=== PATIENT | male | born 1985 | race Caucasian/White ===

== ENCOUNTER 2017-03-30 08:42 | Observation (INO) | payer OTHER ==
[2017-03-30 10:01] LABS: Hematocrit 45 % (42-52); Hemoglobin 14.8 g/dl (14.0-18.0); Mean Corpuscular HGB Conc 33 g/dl (31-36); Mean Corpuscular Hemoglobin 30 pg (27-31); Mean Corpuscular Volume 89 fL (80-94); Mean Platelet Volume 11 um3 (7.4-10.4); Red Blood Count 5.02 10^6/ul (4.0-5.4); Red Cell Distribution Width 14 % (10.5-15); White Blood Count 9.8 10^3/ul (3.5-10.8)
[2017-03-30 10:22] LABS: Albumin 3.6 g/dL (3.2-5.2); BUN/Creatinine Ratio 11.7 (8-20); C Reactive Protein 230.84 mg/L (< 5.00); Calcium 8.7 mg/dL (8.6-10.3); EGFR African American 151.5 (>60); EGFR Non-African American 117.8 (>60); Globulin 3.7 g/dL (2-4); Potassium 3.9 mmol/L (3.5-5.0); Total Bilirubin 0.6 mg/dL (0.2-1.0); Total Protein 7.3 g/dL (6.4-8.9)
[2017-03-30] MEDS ORDERED: NS 0.9% 1000 ML* 1,000 ML IV ONE (11:01)
[2017-03-30 11:36] LABS: Erythrocyte Sed Rate 53 mm/Hr (0-14)
[2017-03-30] MEDS ORDERED: Ondansetron INJ* 2 MG/ML VIAL IV PRN (12:54)
[2017-03-30] MEDS ORDERED: Acetaminophen TAB* 325 MG PO PRN (12:54)
[2017-03-30] MEDS ORDERED: Nicotine Inhaler* 10 MG AMP INH PRN (13:06)
[2017-03-30] MEDS ORDERED: Nicotine GUM* 2 MG PO PRN (13:06)
[2017-03-30] MEDS: ceFAZolin 1 GM VIAL(*) 1 GM in NS 0.9% 50 ML* 50 ML IVPB SCH ×2 (14:51→21:49)
[2017-03-30] MEDS: Lisinopril TAB* 5 MG PO SCH (15:03)
[2017-03-30] MEDS: Enoxaparin(*) 40 MG/0.4 ML SYR SUBCUT SCH (15:03)
[2017-03-30] MEDS: Nicotine PATCH 21 MG/24 HR* PATCH TRANSDERM SCH (15:04)
--- NOTE | 2017-03-30 15:28 | HP ---
MEDICINE HISTORY AND PHYSICAL: DATE OF ADMISSION: 03/30/17 PROVIDER: Garrick David NP ATTENDING PHYSICIAN: Dr. Mandy Holland* (as dictated by Garrick David NP) PRIMARY CARE PROVIDER: None. CHIEF COMPLAINT: Rash and fever. HISTORY OF PRESENT ILLNESS: This is a 32-year-old male patient, who presented to the hospital today for evaluation of a rash to the lower abdomen. Mr. Strong reports that over the weekend, he felt cough, but participated in his usual activities. On Monday morning, he woke up feeling weak. He reports headache, diarrhea 1 episode. He also reports subjective fever when he was having alternating chills and hot flashes. On Monday, a rash appeared across his abdomen, which he initially thought was like a heat rash, but then states that it became very painful and hot and tender. He has been treating his symptoms with Tylenol and petroleum jelly with little relief. The rash is aggravated by clothing and blankets that rub on the rash. He also reports decreased p.o. intake as well dark urine, which has since cleared up. He does state he has had rashes to his abdomen previously but this is different from those previous rashes. The patient denies any chest pain, difficulty breathing, cold or flu-like symptoms, further vomiting or diarrhea, although he does still endorse some nausea. He denies any dysuria or gross hematuria, focal weakness, or any other complaint. Here in the ER, the patient had lab work which showed concerns for an elevated ESR 53 and a CRP at 230.84. Hospital Medicine was consulted with concern for panniculitis. PAST MEDICAL HISTORY: He reports history of hypertension for which he formerly took medication, but has been off that for several years secondary to noncompliance. The patient also thinks he may have been diagnosed with obstructive sleep apnea, but did not pursue followup after an overnight oximetry. He endorses chronic right foot pain and was previously treated for depression. Past medical history also includes super morbid obesity with a BMI of 62. PAST SURGICAL HISTORY: Includes tonsillectomy and multiple hernia repairs. HOME MEDICATIONS: Acetaminophen 1000 mg q.6 hours p.r.n. ALLERGIES: No known drug allergies. FAMILY HISTORY: The patient reports a history of heart disease in his maternal grandfather and maternal uncle as well as diabetes and both his maternal and paternal grandparents. SOCIAL HISTORY: The patient smokes 1-1/2 packs per day and has been smoking for 13 years. He reports drinking 1 to 2 beers on most evenings. His last drink was on Monday and he does drink heavier on the weekends. He is a electronics system mechanic. He is . He does have children. His surrogate decision makers are his , Azul Strong, and his mother, Joann Bernal. REVIEW OF SYSTEMS: As per HPI. PHYSICAL EXAMINATION GENERAL: This is a very pleasant young, obese male who is sitting up in the ED stretcher, in no acute distress. VITAL SIGNS: Temperature 96, pulse rate 97, respiratory rate 17, blood pressure 162/96, and O2 saturation 96% on room air. HEENT: Head is atraumatic and normocephalic. Face is symmetrical. Pupils are equal, round, and reactive to light and accommodation. Extraocular movements are intact. Oral mucosa appears moist. There is no oropharyngeal erythema or exudate. NECK: Supple. No lymphadenopathy appreciated. RESPIRATORY: Lungs are clear to auscultation. CARDIAC: S1 and S2 heart sounds, regular rate and rhythm. No murmurs, rubs, or gallops. There is no peripheral edema. Distal pulses are 1+ and equal bilaterally. ABDOMEN: Soft. Bowel sounds are normoactive. There is an erythematous, hot area of redness along the panniculus just below the umbilicus extending downwards into the abdominal fold. No open areas of drainage or blistering noted. MUSCULOSKELETAL: The patient moves all extremities. No clubbing or cyanosis noted. NEURO: Cranial nerves II through XII are grossly intact. The patient moves all extremities. Sensation is intact to light touch in lower extremities. PSYCH: He is alert and oriented x3. Affect is appropriate. SKIN: Again, there is an area of erythematous, hot, cellulitic skin to the abdomen as previously mentioned. DIAGNOSTIC STUDIES/LAB DATA: CBC: WBC 9.8, hemoglobin 14.8, hematocrit 45, platelet count 116. ESR 53. BMP: Sodium 134, potassium 3.9, chloride 101, carbon dioxide 27, BUN 9, creatinine 0.77, glucose 129, lactic acid 0.8, calcium 8.7. Total bilirubin 0.6, AST 23, ALT 28, alk phos 42. CRP 230. Old medical records were reviewed. ASSESSMENT AND PLAN: This is a 32-year-old male patient who presents today with concern for panniculitis. He will be admitted to the medicine floor. Plan is as follows: 1. Panniculitis. Affected area has been outlined with a skin marker to evaluate progression and improvement. The patient appears nontoxic. Blood cultures are pending. At this point in time, we will maintain the patient on Ancef, continue to monitor his progress, and await culture results. There are a few small open areas to the abdomen that may have been a point of entry for bacteria. We will recheck a CBC in the morning as well a BMP and clinically assess the patient's response to antibiotic treatment. 2. History of hypertension. The patient is hypertensive here. He was previously on medication, which he does not remember the name of. Given his multiple risk factors, we will start the patient on low-dose lisinopril to assess his response here. The patient will need a PCP referral prior to discharge in order to get appropriate followup once discharged from the hospital. 3. History of obstructive sleep apnea. I discussed with the patient the need to have an official sleep study, which can be arranged through his PCP once established. 4. History of depression. The patient is not currently on any medications. Continue supportive care. 5. History of super morbid obesity. The patient was referred to [facility] for further resources. We did discuss this with him and his family. The patient will defer until he is able to establish with a new primary care provider. 6. FEN. The patient is ordered a heart-healthy diet. 7. DVT prophylaxis. He is ordered subcu Lovenox. 8. Code status. The patient is a full code. TIME SPENT: Time spent on this admission was approximately 60 minutes, more than half that time was spent [id number] with the patient obtaining history and physical, performing the physical examination, and reviewing the plan of care. Plan of care was also discussed with my attending, Dr. Holland, who is in agreement. GARRICK DAVID, JAYLA [id number]/[facility] #: [id number] PARMINDER
[2017-03-30] MEDS ORDERED: Mouth Piece, Nicotine* 1 EACH CARTRIDGE ONE (16:20)
--- NOTE | 2017-03-30 17:23 | ED ---
Rj Bailey Angela, scribed for Kurtis Fernandez MD on 03/30/17 at 0912 . Skin Complaint - HPI Summary HPI Summary: This pt is a 32 y/o male presenting to [facility] c/o rash on his panniculus x2 days. Pt reports that on the first day he felt fatigued, "loopy," but didn't notice a rash. The next day he states he noticed the rash. Today pt presents with erythematous, warm, and very sore rash on his panniculus. Pt additionally c /o subjective fever and headache. PMHx: HTN. Pt reports he was given anti-hypertensive medications but has not taken them. - History of Current Complaint Chief Complaint: EDRashSkinAbscess Time Seen by Provider: 03/30/17 08:49 Stated Complaint: RASH, FEVER Hx Obtained From: Patient Onset/Duration: Started Days Ago Skin Exposure Onset/Duration: Days Ago Timing: Lasting Days Current Severity: Moderate Pain Intensity: 6 Pain Scale Used: 0-10 Numeric Skin Location: Abdomen - panniculus Character: Pain, Redness, Painful Aggravating Symptom(s): Nothing Alleviating Symptom(s): Nothing Associated Signs & Symptoms: Rash - Allergy/Home Medications Allergies/Adverse Reactions: Allergies Allergy/AdvReac Type Severity Reaction Status Date / Time No Known Allergies Allergy Verified 05/23/13 11:19 Home Medications: Home Medications Acetaminophen [Acetaminophen Extra Stren] 1,000 mg PO Q6HR PRN 03/30/17 [ History Confirmed 03/30/17] PMH/Surg Hx/FS Hx/Imm Hx Endocrine/Hematology History: Reports: Hx Diabetes - POSSIBLE - NO MEDS Cardiovascular History: Reports: Hx Hypertension Respiratory History: Reports: Hx Sleep Apnea - NO MACHINES Sensory History: Reports: Hx Contacts or Glasses - READING GLASSES Denies: Hx Hearing Aid Opthamlomology History: Reports: Hx Contacts or Glasses - READING GLASSES - Surgical History Surgery Procedure, Year, and Place: TONSILLECTOMY AND ADENOIDECTOMY A CHILD. 2009 UMBILICAL HERNIA REPAIR, [facility] Hx Anesthesia Reactions: No Infectious Disease History: No Infectious Disease History: Denies: Traveled Outside the [place] in Last 30 Days - Family History Known Family History: Positive: Diabetes - grandmother - Social History Alcohol Use: None Substance Use Type: Reports: None Smoking Status (MU): Current Every Day Smoker Review of Systems Positive: Fever - subjective, Fatigue. Negative: Chills Eyes: Negative ENT: Negative Negative: Chest Pain Negative: Shortness Of Breath Gastrointestinal: Negative Genitourinary: Negative Positive: Rash - on panniculus. Neurological: Other - dizzy/ "loopy" Positive: Headache All Other Systems Reviewed And Are Negative: Yes Physical Exam - Summary Physical Exam Summary: VITAL SIGNS: Reviewed. GENERAL: Patient is a well-developed and morbidly obese male who is lying comfortable in the stretcher. Patient is not in any acute respiratory distress. HEAD AND FACE: No signs of trauma. No ecchymosis, hematomas or skull depressions. No sinus tenderness. EYES: PERRLA, EOMI x 2, No injected conjunctiva, no nystagmus. EARS: Hearing grossly intact. Ear canals and tympanic membranes are within normal limits. MOUTH: Oropharynx within normal limits. NECK: Supple, trachea is midline, no adenopathy, no JVD, no carotid bruit, no c- spine tenderness, neck with full ROM. CHEST: Symmetric, no tenderness at palpation LUNGS: Clear to auscultation bilaterally. No wheezing or crackles. CVS: Regular rate and rhythm, S1 and S2 present, no murmurs or gallops appreciated. ABDOMEN: Soft, non-tender. No signs of distention. No rebound no guarding, and no masses palpated. Bowel sounds are normal. EXTREMITIES: FROM in all major joints, no edema, no cyanosis or clubbing. NEURO: Alert and oriented x 3. No acute neurological deficits. Speech is normal and follows commands. SKIN: Dry and warm. Pt has erythema, swelling, and tenderness on his panniculus. Triage Information Reviewed: Yes Vital Signs On Initial Exam: Initial Vitals Temp Pulse Resp BP Pulse Ox 96 F 97 17 162/96 96 03/30/17 08:43 03/30/17 08:43 03/30/17 08:43 03/30/17 08:43 03/30/17 08:43 Vital Signs Reviewed: Yes Diagnostics - Vital Signs Vital Signs Temp Pulse Resp BP Pulse Ox 03/30/17 08:43 96 F 97 17 162/96 96 - Laboratory Result Diagrams: 03/30/17 09:32 03/30/17 09:32 Lab Statement: Any lab studies that have been ordered have been reviewed, and results considered in the medical decision making process. Re-Evaluation - Re-Evaluation First Eval Re-Evaluation Time: 11:10 Comment: I discussed the plan for admission to the pt. Course/Dx - Course Assessment/Plan: This pt is a 32 y/o male presenting to [facility] c/o rash on his panniculus x2 days. Pt reports that on the first day he felt fatigued, "loopy," but didn't notice a rash. The next day he states he noticed the rash. Today pt presents with erythematous, warm, and very sore rash on his panniculus. Pt additionally c/o subjective fever and headache. PMHx: HTN. Pt reports he was given anti-hypertensive medications but has not taken them. Test results without any significant abnormalities except for platelet count of 116, ESR of 53, fibrinogen 608, CRP of 230, glucose of 129. Because of the pts panniculitis I started the pt on zosyn and IV fluids. I discussed the case with Dr. Holland, who accepted the pt for admission. Pt is hemodynamically stable, alert and oriented x3. - Diagnoses Provider Diagnoses: Panniculitis - Physician Notifications Discussed Care Of Patient With: Mandy Holland Time Discussed With Above Provider: 11:07 Instructed by Provider To: Other - I discussed the pt's case with Dr. Holland, hospitalist. She has agreed to admit the pt. Discharge - Discharge Plan Condition: Stable Disposition: ADMITTED TO [facility] The documentation as recorded by the Rj brown Angela accurately reflects the service I personally performed and the decisions made by me, Kurtis Fernandez MD.
[2017-03-30 20:07] LABS: Urine Bilirubin Negative (Negative); Urine Glucose Negative (Negative); Urine Nitrite Negative (Negative)
[2017-03-30] MEDS ORDERED: Nicotine Patch Removal NOTE PATCH OFF SCH (21:00)
[2017-03-31 05:19] LABS: Hematocrit 41 % (42-52); Hemoglobin 13.9 g/dl (14.0-18.0); Mean Corpuscular HGB Conc 34 g/dl (31-36); Mean Corpuscular Hemoglobin 30 pg (27-31); Mean Corpuscular Volume 89 fL (80-94); Mean Platelet Volume 10 um3 (7.4-10.4); Red Blood Count 4.67 10^6/ul (4.0-5.4); Red Cell Distribution Width 14 % (10.5-15); White Blood Count 7.9 10^3/ul (3.5-10.8)
[2017-03-31 05:20] LABS: Comments Flag Yes
[2017-03-31 05:30] LABS: BUN/Creatinine Ratio 13.8 (8-20); Calcium 8.6 mg/dL (8.6-10.3); EGFR Non-African American 112.8 (>60); Potassium 4.1 mmol/L (3.5-5.0)
[2017-03-31] MEDS: ceFAZolin 1 GM VIAL(*) 1 GM in NS 0.9% 50 ML* 50 ML IVPB SCH ×2 (05:51→12:45)
[2017-03-31] MEDS: Nicotine PATCH 21 MG/24 HR* PATCH TRANSDERM SCH (07:48)
[2017-03-31] MEDS: Lisinopril TAB* 5 MG PO SCH (07:48)
[2017-03-31 11:23] VITALS: BP 133/67
[2017-03-31] MEDS: Enoxaparin(*) 40 MG/0.4 ML SYR SUBCUT SCH (13:04)
--- NOTE | 2017-04-01 02:51 | DS ---
DISCHARGE SUMMARY: DATE OF ADMISSION: 03/30/17 DATE OF DISCHARGE: 03/31/17 ADMITTING PROVIDER: Noemi Wang NP. ATTENDING PHYSICIAN: Walter Siegel MD. PRINCIPAL DIAGNOSES: 1. Lower abdominal rash. 2. Fevers. 3. Chills. 4. Cellulitis/panniculitis. SECONDARY DIAGNOSES: 1. Morbid obesity with BMI above 60. 2. Newly diagnosed hypertension. 3. Current smoker. 4. Lost to medical followup of 3 years. HISTORY OF PRESENT ILLNESS AND HOSPITAL COURSE: The patient is a 32-year-old male with past medical history of morbid obesity, current smoker, family history of heart disease who presents with rash to his lower abdomen, which started 2 days prior to admission. He was up until then feeling more weak the day prior to that, had headaches and diarrhea x1. He then had subjective fevers and chills. The rash was then becoming very painful, hard and tender. He took Tylenol and petroleum jelly with little relief. Of note, he had been picking at some superficial skin sores that he often gets on his lower abdomen. He was admitted for treatment of cellulitis. He got 1 dose of IV Zosyn in the ED and transitioned to IV cefazolin. His rash improved. His initial labs were significant for a CRP of 230. White count 9.8, down to 7.9. His vital signs were notable initially for blood pressure in the 160/96 range. He was started on lisinopril 5 mg a day. He was also given a nicotine 21 mg patch, inhaler and gum for his 1-1/2 pack per day smoking habit. Given the improvement in the rash, stable hemodynamics and negative blood cultures, he was considered safe for discharge, on course of Keflex p.o. for a total course of antibiotics 10 days. He will follow up with new primary care physician, Dr. Preet Sosa of [place] early next week on Monday 2 p.m. They will have to address many chronic issues such as his morbid obesity with BMI of 64.6. His current smoking, of note he is being prescribed a nicotine patch and gum. He is to have a blood pressure check given his new medication and obviously evaluation for any side effects or progression of the rash or return of fevers. DISCHARGE DIET: Heart healthy. DISCHARGE ACTIVITY LEVEL: No restriction. DISCHARGE MEDICATIONS: Include: 1. Keflex 500 mg p.o. 4 times a day 38 tabs for a total course of 10 days. 2. Lisinopril 5 mg tablet p.o. daily. 3. Nicotine gum 2 mg p.o. q.2 hours p.r.n. 4. Nicotine patch 21 mg every 24 hours. 5. Tylenol 1000 mg p.o. q.6 hours p.r.n. (old). FOLLOWUP: With Dr. Preet Sosa on 04/05/17, at 2 p.m. Discussed plan as above. TIME SPENT: Time spent on discharge was 35 minutes. [id number]/[facility] #: [id number] PARMINDER
== END 2017-03-31 13:10 | disposition home or self-care (01) ==
LOC: ED 08:42 → MED 12:43 → INTOOBSV 12:43
PROVIDERS: ADMIT Internal Medicine; ATTEND Internal Medicine
DX: M79.3 Panniculitis, unspecified (principal); L03.311 Cellulitis of abdominal wall; R50.9 Fever, unspecified; G47.33 Obstructive sleep apnea (adult) (pediatric); E66.01 Morbid (severe) obesity due to excess calories; I10 Essential (primary) hypertension; F17.210 Nicotine dependence, cigarettes, uncomplicated; F32.9 Major depressive disorder, single episode, unspecified; Z79.82 Long term (current) use of aspirin; R10.9 Unspecified abdominal pain; Z79.899 Other long term (current) drug therapy
CPT/HCPCS: 36415; 80048; 80053; 81003; 83036; 83605; 85025; 85384; 85610; 85652; 85730; 86140; 87040; 96372; 96374; 96375; 96376; 99284; 99406; A9270-GY; G0378; J0690; J1650; J2543

== ENCOUNTER 2017-10-17 08:22 | Inpatient (IN) | payer SELFPAY ==
[2017-10-17 10:12] LABS: ABS Basophils 0.1 10^3/ul (0-0.2); ABS Eosinophils 0.2 10^3/ul (0-0.6); ABS Lymphocytes 1.8 10^3/ul (1.0-4.8); ABS Monocytes 0.9 10^3/ul (0-0.8); ABS Neutrophils 5.2 10^3/ul (1.5-7.7); ABS Nucleated RBC 0 10^3/ul; Eosinophil % 2.8 % (0-6); Hematocrit 45 % (42-52); Hemoglobin 15.4 g/dl (14.0-18.0); Mean Corpuscular HGB Conc 34 g/dl (31-36); Mean Corpuscular Hemoglobin 30 pg (27-31); Mean Corpuscular Volume 88 fL (80-94); Mean Platelet Volume 11.4 um3 (7.4-10.4); Nucleated Red Blood Cells % 0.1; Platelet Count 119 10^3/ul (150-450); Red Blood Count 5.11 10^6/ul (4.0-5.4); Red Cell Distribution Width 14 % (10.5-15); White Blood Count 8.2 10^3/ul (3.5-10.8)
[2017-10-17 10:32] LABS: EGFR Non-African American 114.4 (>60)
[2017-10-17] MEDS ORDERED: Iodixanol* (CONTRAST) 320 MG/ML 100 ML SDV IV ONE (11:01)
[2017-10-17] MEDS ORDERED: NS 0.9% 1000 ML* 1,000 ML IV ONE (11:55)
--- NOTE | 2017-10-17 14:09 | RAD ---
Indication: 3 weeks testicular pain after noticing a boil on the LEFT scrotum. Difficulty urinating due to overlapping skin. Morbid obesity. Comparison: July 16, 2015 Technique: CT pelvis with 141 mL Visipaque 320 IV contrast. Multiplanar reformation. Report: Morbid obesity. Mild diverticulosis of the partially visualized colon without acute inflammatory change. Unremarkable visualized small bowel loops and partially visualized appendix. Negative for ascites or free air within the [id number]. Postsurgical change of previous anterior supraumbilical mesh hernia repair. Unremarkable visualized distal segments of the nondilated ureters. Largely decompressed urinary bladder without gross abnormality. Negative for prostatomegaly. Symmetric seminal vesicles. 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 Diffuse dermal thickening at the scrotum. No compelling subcutaneous emphysema evident. No loculated soft tissue plane fluid collection evident. The testicles are located in the scrotum. No gross CT evidence for significant hydroceles however ultrasound would be more sensitive for detection of hydroceles. Negative for lymphadenopathy within the [id number]. Unremarkable aortic bifurcation and iliac arteries. Negative for suspicious osseous lesions. IMPRESSION: 1. 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 Diffuse dermal thickening at the scrotum. No compelling subcutaneous emphysema evident. No loculated soft tissue plane fluid collection evident. The testicles are located in the scrotum. No gross CT evidence for significant hydroceles however ultrasound would be more sensitive for detection of hydroceles. 2. Negative for lymphadenopathy.
--- NOTE | 2017-10-17 14:36 | ED ---
Skin Complaint - HPI Summary HPI Summary: Pt here w/ redness, swelling and wetness in groin area. Started 1 month ago as focal redness/irritation. Pt states he had a boil on left side of testicles and over past three weeks has increased in size and affecting both sides with swelling and pain. Denies fever, chills, nausea, vomiting, diarrhea. Has been trying to air the area out with fans, etc however continues to worsen. Difficulty with urination as he reports he has to find his penis due to all the swelling - once he locates it, he has some hesitation with urination but is eventually able to push urine out. Denies chest pain, ab pain, flank pain. In re : to the diffuse red rash in groin, he has no itching or swelling, no airway changes. H/o anbx recently - once in hospital and other outpt for dental infection - had a tooth pulled and thinks he may have thrush as well. "Borderline" diabetes - no PCP - recently unemployed - applying for insurance. Reports he's lost some weight as of late by changing his diet - wondering if this skin irritation started from extra loose skin in the area trapping moisture. - History of Current Complaint Chief Complaint: EDRashSkinAbscess Time Seen by Provider: 10/17/17 09:40 Stated Complaint: GENITAL PROBLEM Hx Obtained From: Patient, Family/Congressional Representative - Pain Intensity: 8 - Additional Pertinent History Primary Care Physician: [id number] - Allergy/Home Medications Allergies/Adverse Reactions: Allergies Allergy/AdvReac Type Severity Reaction Status Date / Time cefazolin Allergy Facial Verified 10/18/17 03:05 Redness/Flushing PMH/Surg Hx/FS Hx/Imm Hx Previously Healthy: No - morbidly obese Endocrine/Hematology History: Reports: Hx Diabetes - POSSIBLE - NO MEDS Denies: Autoimmune Disease Cardiovascular History: Reports: Hx Hypertension Respiratory History: Reports: Hx Sleep Apnea - NO MACHINES Sensory History: Reports: Hx Contacts or Glasses - READING GLASSES Denies: Hx Cataracts, Hx Hearing Aid Opthamlomology History: Reports: Hx Contacts or Glasses - READING GLASSES Denies: Hx Cataracts - Surgical History Surgery Procedure, Year, and Place: TONSILLECTOMY AND ADENOIDECTOMY A CHILD. 2009 UMBILICAL [place]ERNIA [place]PAIR[place] [facility] [place] Hx Anesthesia Reactions: No - Immunization History Immunizations Up to Date: Yes Infectious Disease History: No Infectious Disease History: Denies: Hx of Known/Suspected MRSA, Traveled Outside the [place] in Last 30 Days - Family History Known Family History: Positive: Diabetes - grandmother - Social History Lives: With Family Alcohol Use: Rare Hx Substance Use: No Substance Use Type: Reports: None Hx Tobacco Use: Yes Smoking Status (MU): Current Every Day Smoker Review of Systems Constitutional: Negative Negative: Fever, Chills, Fatigue Eyes: Negative ENT: Negative Cardiovascular: Negative Respiratory: Negative Gastrointestinal: Negative Positive: see HPI Musculoskeletal: Negative Positive: Rash Neurological: Negative Psychological: Normal All Other Systems Reviewed And Are Negative: Yes Physical Exam Triage Information Reviewed: Yes Vital Signs On Initial Exam: Initial Vitals Temp Pulse Resp BP Pulse Ox 97.7 F 106 20 148/84 96 10/17/17 08:27 10/17/17 08:27 10/17/17 08:27 10/17/17 08:27 10/17/17 08:27 Vital Signs Reviewed: Yes Appearance: Positive: Well-Appearing, Obese Skin: Positive: Warm - erythematous, diffuse induration of thickened skin with satellite erythematous spots and wetness within creases of groin Head/Face: Positive: Normal Head/Face Inspection Eyes: Positive: Normal, EOMI ENT: Positive: Normal ENT inspection, Hearing grossly normal, Other - tongue with white coating Respiratory/Lung Sounds: Positive: Breath Sounds Present Cardiovascular: Positive: Normal Abdomen Description: Positive: Nontender, Soft Bowel Sounds: Positive: Present Male Genital Exam: Positive: Scrotum Tenderness (R), Scrotum Tenderness (L), Other - penis is burried in edematous/erythematous groin tissue of pannus, lateral groin skin and scrotal skin - urethra is patent and w/o lesions. Negative: Testicular Tenderness (R), Testicular Tenderness (L), Urethral Discharge Musculoskeletal: Positive: Other - pt is able to ambulate Neurological: Positive: Normal, Sensory/Motor Intact, Alert, Oriented to Person Place, Time, CN Intact II-III Psychiatric: Positive: Normal Diagnostics - Vital Signs Vital Signs Temp Pulse Resp BP Pulse Ox 10/17/17 12:00 92 93 10/17/17 11:58 90 111/70 93 10/17/17 11:52 92 147/86 94 10/17/17 11:03 91 93 10/17/17 10:29 95 20 130/77 91 10/17/17 10:28 92 130/77 92 10/17/17 08:27 97.7 F 106 20 148/84 96 - Laboratory Lab Results: Lab Results 10/17/17 10/17/17 10/17/17 Range/Units 10:03 10:03 10:03 WBC 8.2 (3.5-10.8) 10^3/ul RBC 5.11 (4.0-5.4) 10^6/ul Hgb 15.4 (14.0-18.0) g/dl Hct 45 (42-52) % MCV 88 (80-94) fL MCH 30 (27-31) pg MCHC 34 (31-36) g/dl RDW 14 (10.5-15) % Plt Count 119 L (150-450) 10^3/ul MPV 11.4 H (7.4-10.4) um3 Neut % (Auto) 63.7 (38-83) % Lymph % (Auto) 22.0 L (25-47) % [place] % (Auto) 10.6 H (0-7) % Eos % (Auto) 2.8 (0-6) % Baso % (Auto) 0.9 (0-2) % Absolute Neuts (auto) 5.2 (1.5-7.7) 10^3/ul Absolute Lymphs (auto) 1.8 (1.0-4.8) 10^3/ul Absolute Monos (auto) 0.9 H (0-0.8) 10^3/ul Absolute Eos (auto) 0.2 (0-0.6) 10^3/ul Absolute Basos (auto) 0.1 (0-0.2) 10^3/ul Absolute Nucleated RBC 0 10^3/ul Nucleated RBC % 0.1 ESR 35 H (0-14) mm/Hr Sodium 129 L (139-145) mmol/L Potassium 4.3 (3.5-5.0) mmol/L Chloride 92 L (101-111) mmol/L Carbon Dioxide 24 (22-32) mmol/L Anion Gap 13 H (2-11) mmol/L BUN 14 (6-24) mg/dL Creatinine 0.79 (0.67-1.17) mg/dL Est GFR ( Amer) 147.1 (>60) Est GFR (Non-Af Amer) 114.4 (>60) BUN/Creatinine Ratio 17.7 (8-20) Glucose 498 H (70-100) mg/dL Hemoglobin A1c (4.0-5.6) % Lactic Acid 0.9 (0.5-2.0) mmol/L Calcium 9.3 (8.6-10.3) mg/dL Total Bilirubin 0.70 (0.2-1.0) mg/dL AST 18 (13-39) U/L ALT 35 (7-52) U/L Alkaline Phosphatase 59 (34-104) U/L C-Reactive Protein 36.22 H (< 5.00) mg/L Total Protein 6.9 (6.4-8.9) g/dL Albumin 3.7 (3.2-5.2) g/dL Globulin 3.2 (2-4) g/dL Albumin/Globulin Ratio 1.2 (1-3) 10/17/17 Range/Units 10:03 WBC (3.5-10.8) 10^3/ul RBC (4.0-5.4) 10^6/ul Hgb (14.0-18.0) g/dl Hct (42-52) % MCV (80-94) fL MCH (27-31) pg MCHC (31-36) g/dl RDW (10.5-15) % Plt Count (150-450) 10^3/ul MPV (7.4-10.4) um3 Neut % (Auto) (38-83) % Lymph % (Auto) (25-47) % [place] % (Auto) (0-7) % Eos % (Auto) (0-6) % Baso % (Auto) (0-2) % Absolute Neuts (auto) (1.5-7.7) 10^3/ul Absolute Lymphs (auto) (1.0-4.8) 10^3/ul Absolute Monos (auto) (0-0.8) 10^3/ul Absolute Eos (auto) (0-0.6) 10^3/ul Absolute Basos (auto) (0-0.2) 10^3/ul Absolute Nucleated RBC 10^3/ul Nucleated RBC % ESR (0-14) mm/Hr Sodium (139-145) mmol/L Potassium (3.5-5.0) mmol/L Chloride (101-111) mmol/L Carbon Dioxide (22-32) mmol/L Anion Gap (2-11) mmol/L BUN (6-24) mg/dL Creatinine (0.67-1.17) mg/dL Est GFR ( Amer) (>60) Est GFR (Non-Af Amer) (>60) BUN/Creatinine Ratio (8-20) Glucose (70-100) mg/dL Hemoglobin A1c 15.2 H (4.0-5.6) % Lactic Acid (0.5-2.0) mmol/L Calcium (8.6-10.3) mg/dL Total Bilirubin (0.2-1.0) mg/dL AST (13-39) U/L ALT (7-52) U/L Alkaline Phosphatase (34-104) U/L C-Reactive Protein (< 5.00) mg/L Total Protein (6.4-8.9) g/dL Albumin (3.2-5.2) g/dL Globulin (2-4) g/dL Albumin/Globulin Ratio (1-3) Result Diagrams: 10/17/17 10:03 10/18/17 06:21 Lab Statement: Any lab studies that have been ordered have been reviewed, and results considered in the medical decision making process. Course/Dx - Course Course Of Treatment: Suspect cellulitis from infectious cause along with yeast infection of the groin. New onset DM w/ significantly elevated glucose and HGA1C w/o PCP or f/u care - will admit. Discussed w/ Dr. Holland who agrees. CT: diffuse dermal thickening of scrotum - no emphysema or fluid collection. NOTE: no s/sx of sepsis - Diagnoses Provider Diagnoses: Fungal infection of the groin, Diabetes type 2, uncontrolled, Abscess or cellulitis of groin Discharge - Sign-Out/Discharge Documenting (check all that apply): Discharge/Admit/Transfer - Discharge Plan Condition: Improved Disposition: ADMITTED TO [facility] - Billing Disposition and Condition Condition: IMPROVED Disposition: [place] [place]
[2017-10-17] MEDS ORDERED: Acetaminophen TAB* 325 MG PO PRN (15:28)
[2017-10-17] MEDS ORDERED: Al Hydrox/Mg Hydrox/Simet LIQ* 30 ML UDC PO PRN (15:28)
[2017-10-17] MEDS ORDERED: Dextrose 50% Syringe 50 ML* 25 GM/50 ML SYRINGE IV PUSH PRN (15:34)
[2017-10-17] MEDS ORDERED: Insulin GLARGINE(*) 1 UNITS UNIT SUBCUT SCH (16:00)
[2017-10-17] MEDS: ceFAZolin 1 GM VIAL(*) 1 GM in NS 0.9% 50 ML* 50 ML IVPB SCH ×2 (17:48→22:01)
[2017-10-17] MEDS: NS 0.9% 1000 ML* 1,000 ML IV SCH (17:48)
[2017-10-17] MEDS: glipiZIDE TAB* 5 MG PO SCH (17:49)
[2017-10-17] MEDS: Insulin LISPRO* 1 UNITS UNIT SUBCUT SCH ×2 (17:58→21:59)
[2017-10-17] MEDS: Nystatin CREAM* 15 GM TUBE TOPICAL SCH ×2 (17:59→22:11)
--- NOTE | 2017-10-17 21:32 | HP ---
HISTORY AND PHYSICAL: DATE OF ADMISSION: 10/17/17 PRIMARY CARE PROVIDER: None. CHIEF COMPLAINT: An infection in the groin area. HISTORY OF PRESENT ILLNESS: Florian Strong is a 32-year-old male with BMI of over 60. The patient stated that he was admitted in March of 2017 and during that admission when he had panniculitis, he was noted to be hypertensive and having "borderline sugars." He at that point started dieting. He stopped drinking alcohol 2 months ago. He cut down smoking to half a pack per day and he took away soda from his diet. He stated that he lost some weight, but unfortunately he cannot quantify it since he does not have a scale if it would be able to measure his weight at home. He started noticing polydipsia and polyuria. Yesterday, he drank some alcohol, which he has not done for 2 months and he developed scrotal swelling with erythema. He stated that it had been going on for a while, but it has progressed recently and more so since yesterday. When he presented to the hospital, he was noted to have sugar of 498. His hemoglobin A1c was 15. He was noted to have inflammatory changes in his groin area, which appears to be cellulitis and candidal intertrigo. He is going to be placed on observation for the above mentioned. PAST MEDICAL HISTORY: 1. Super morbid obesity. 2. History of hypertension in the past, currently not treated. 3. History of glucose intolerance. New diagnosis of diabetes during this hospital stay. MEDICATIONS: None. ALLERGIES: No known drug allergies. FAMILY HISTORY: Positive for mother with morbid obesity, who had gastric bypass in the past. Grandfather and uncle with diabetes, heart disease in grandfather. SOCIAL HISTORY: The patient cut down to half a pack of cigarettes a day and he had been smoking 1 to 1-1/2 packs per day for 13 years up to now. He has history of drinking at least a couple of beers every evening, but he quit 2 months ago. He denies any drug use. His surrogate decision maker is his , Azul Strong, and his mother, Joann Bernal. REVIEW OF SYSTEMS: Please see history of present illness. All the remaining 12 systems were reviewed with the patient and were otherwise negative. PHYSICAL EXAMINATION GENERAL: The patient is a very pleasant 32-year-old morbidly-obese male, who is in no acute distress. Alert, awake, and oriented x3. VITAL SIGNS: Blood pressure of 137/78, heart rate of 87 and regular, respiratory rate 16, oxygen saturation 95% on room air, temperature of 97.7. HEENT: Head: Atraumatic, normocephalic. Eyes: Pupils are equal, reactive to light and accommodation. Oropharynx clear. Mucosa moist. NECK: Supple. No JVD. No bruits bilaterally. RESPIRATORY: Clear to auscultation bilaterally. CARDIOVASCULAR: Regular rate and rhythm. No murmur. ABDOMEN: Soft, nontender. Bowel sounds are present in all 4 quadrants. EXTREMITIES: There is +1 pitting pedal edema bilaterally. Pulses +2 bilaterally. There is no clubbing or cyanosis. NEURO EVALUATION: Speech is clear. Cranial nerves II through XII are grossly intact. Motor strength is 5/5 bilaterally. SKIN: On evaluation of the skin, the patient has candidal intertrigo, which is [id number] in bilateral groin area. His entire area surrounding his penis , scrotal area is with erythema that is tracking up to his pannus consistent with cellulitis. The patient also has several small areas of indurations, likely related to hidradenitis-like appearing picture. DIAGNOSTIC STUDIES/LAB DATA: Laboratory data showed white blood cell count of 8.2, hemoglobin of 15.4, hematocrit 45, and platelets 119. ESR was 35. Sodium was 129, potassium 4.3, chloride 92, carbon dioxide 24, BUN 14, and creatinine 0.79. Liver functions unremarkable. C-reactive protein of 36. Glucose 498. Hemoglobin A1c of 15. CT of pelvis obtained with contrast, impression: "Buried penis due to morbid obesity. Diffuse dermal thickening of the scrotum with no compelling subcutaneous emphysema evident. No loculated soft tissue or plain fluid collection evident. Testicles are loculated in the scrotum. No gross CT evidence for significant hydrocele; however, ultrasound would be more sensitive for detection of hydrocele. Negative for lymphadenopathy." ASSESSMENT AND PLAN: 1. In regards to the patient's cellulitis/panniculitis and candidal intertrigo , the patient is going to be placed on Ancef and nystatin cream. At this point , he is not toxic-appearing, he has no leukocytosis, and no fever. In the past , his panniculitis was treated with Keflex with good results. 2. New diagnosis of diabetes. The patient is dehydrated and has new diagnosis of diabetes. His hemoglobin A1c is 15. Unfortunately, the patient has no insurance, which complicates management. We will ask social work instructor to see the patient in consultation. The patient is going to be placed on insulin Lantus as well as started on glipizide. He will benefit from treatment with metformin , but unfortunately he had a CT of pelvis with contrast and metformin cannot be used for another 72 hours. I will start the patient on glipizide. I will ask diabetic universal branch consultant to see the patient in evaluation. I will ask nursing to start the patient education in regards to fingersticks. Rug Renovator is going to see the patient in regards to diabetic diet. 3. For DVT prophylaxis, the patient is moderate risk and he is going to be placed on heparin subcutaneously. 4. The patient's code status is full and his surrogate is his as well as his mother. TIME SPENT: Approximately 62 minutes was spent on admission of this patient, more than half of that time was spent [id number] with the patient during the interview and physical exam. [id number]/[facility] #: [id number] PARMINDER
[2017-10-17] MEDS: Docusate CAP* 100 MG PO SCH (22:06)
[2017-10-17] MEDS: Heparin VIAL(*) 5000 UNITS/ML VIAL (FIVE THOUSAND) SUBCUT SCH (22:06)
[2017-10-18] MEDS: NS 0.9% 1000 ML* 1,000 ML IV SCH (02:39)
[2017-10-18] MEDS ORDERED: FAMOTIDINE IVPB ONE (02:49)
[2017-10-18] MEDS ORDERED: NS 0.9% IVPB ONE (02:49)
[2017-10-18] MEDS ORDERED: diPHENhydraMINE IV* 50 MG in NS 0.9% 50 ML* 50 ML IVPB PRN (02:49)
[2017-10-18] MEDS ORDERED: diPHENhydraMINE IV* 50 MG/ML 1 ml VIAL (BENADRYL) IV PRN (02:51)
--- NOTE | 2017-10-18 02:51 | PN ---
Hospitalist Progress Note Date of Service: 10/18/17 called for itching redness to cefazolin, will change to vanco for now, will also give prn benadryl and add pepcid,
[2017-10-18] MEDS ORDERED: Famotidine IV* 10 MG/ML 2 ML (20 mg) IV ONE (03:00)
[2017-10-18] MEDS ORDERED: Vancomycin per Pharmacy* NOTE FOLLOW UP PRN (04:13)
[2017-10-18] MEDS ORDERED: Vancomycin(*) 2,000 MG in NS 0.9% 500 ML* 500 ML IVPB ONE (05:00)
[2017-10-18] MEDS: Heparin VIAL(*) 5000 UNITS/ML VIAL (FIVE THOUSAND) SUBCUT SCH ×3 (05:31→22:32)
[2017-10-18 07:15] LABS: EGFR Non-African American 157.1 (>60)
[2017-10-18] MEDS ORDERED: diPHENhydraMINE PO* 25 MG PO PRN (08:13)
[2017-10-18] MEDS: glipiZIDE TAB* 5 MG PO SCH ×2 (08:37→17:50)
[2017-10-18] MEDS: Insulin LISPRO* 1 UNITS UNIT SUBCUT SCH ×4 (08:37→20:44)
[2017-10-18] MEDS: DOXYcycline CAP(*) 100 MG PO SCH ×2 (08:37→20:44)
[2017-10-18] MEDS: Docusate CAP* 100 MG PO SCH ×2 (08:37→20:45)
[2017-10-18] MEDS: Nystatin CREAM* 15 GM TUBE TOPICAL SCH ×3 (08:39→20:46)
[2017-10-18] MEDS ORDERED: methylPREDNISolone SOD 40 MG* 1 ML VIAL IV SCH (09:00)
[2017-10-18] MEDS ORDERED: Insulin GLARGINE(*) 1 UNITS UNIT SUBCUT SCH (09:02)
[2017-10-18] MEDS ORDERED: Vancomycin(*) 1,250 MG in NS 0.9% 250 ML* 250 ML IVPB SCH (13:00)
--- NOTE | 2017-10-18 15:46 | CONSULT ---
Subjective Reason for Visit: Diabetes Educatioin Admission Date: 10/17/17 Glucose Level On Admission: [id number]=22.8% Patient History Surgical History: Yes Surgery Procedure, Year, and Place: TONSILLECTOMY AND ADENOIDECTOMY A CHILD. [place]ICAL [place] [facility] [place] With: Family Preferred/Primary Language: Iraqi Objective Allergies Allergy/AdvReac Type Severity Reaction Status Date / Time cefazolin Allergy Facial Verified 10/18/17 03:05 Redness/Flushing Home Medications Medication Instructions Recorded Confirmed Type NK [No Home Medications Reported] 10/17/17 10/17/17 History Hospital Medications: Current Medications Acetaminophen (Tylenol Tab*) 650 mg PO Q4H PRN PRN Reason: FEVER/PAIN Al Hydrox/Mg Hydrox/Simethicone (Maalox Plus*) 30 ml PO Q6H PRN PRN Reason: INDIGESTION Dextrose (D50w Syringe 50 Ml*) 12.5 gm IV PUSH .FOR FS < 60 - SS PRN PRN Reason: FS < 60 Diphenhydramine HCl (Benadryl Po*) 25 mg PO Q4H PRN PRN Reason: Allergy Symptoms Last Admin: 10/18/17 08:37 Dose: 25 mg Docusate Sodium (Colace Cap*) 100 mg PO BID [facility] Last Admin: 10/18/17 08:37 Dose: Not Given Doxycycline Hyclate (Vibramycin Cap(*)) 100 mg PO BID [facility] Last Admin: 10/18/17 08:37 Dose: 100 mg Glipizide (Glucotrol Tab*) 5 mg PO 0800,1700 [facility] Last Admin: 10/18/17 08:37 Dose: 5 mg Heparin Sodium (Porcine) (Heparin Vial(*)) 5,000 units SUBCUT Q8HR [facility] Last Admin: 10/18/17 14:11 Dose: 5,000 units Sodium Chloride (Ns 0.9% 1000 Ml*) 1,000 mls @ 125 mls/hr IV PER RATE [facility] Last Admin: 10/18/17 02:39 Dose: 125 mls/hr Insulin Glargine (Lantus(*)) 20 units SUBCUT Q24H [facility] Last Admin: 10/18/17 09:55 Dose: 20 unit Insulin Human Lispro (Humalog*) 0 units SUBCUT ACHS [facility] PRN Reason: Protocol Last Admin: 10/18/17 12:51 Dose: 9 units Methylprednisolone Sodium Succinate (Solu-Medrol 40 Mg) 40 mg IV Q12H [facility] Last Admin: 10/18/17 08:36 Dose: 40 mg Nystatin (Nystatin Cream*) 1 applic TOPICAL TID [facility] Last Admin: 10/18/17 14:12 Dose: 1 applic Lab Data: Sodium 134 mmol/L (139-145) L 10/18/17 06:21 Potassium 3.7 mmol/L (3.5-5.0) 10/18/17 06:21 BUN 9 mg/dL (6-24) 10/18/17 06:21 Creatinine 0.60 mg/dL (0.67-1.17) L 10/18/17 06:21 Hemoglobin A1c 15.2 % (4.0-5.6) H 10/17/17 10:03 Calcium 8.0 mg/dL (8.6-10.3) L 10/18/17 06:21 AST 18 U/L (13-39) 10/17/17 10:03 ALT 35 U/L (7-52) 10/17/17 10:03 Vital Signs: Vital Signs 10/18/17 10/18/17 11:12 11:37 Temperature 98.0 F Pulse Rate 85 Respiratory 18 22 Rate Blood Pressure 152/82 (mmHg) O2 Sat by Pulse 93 Oximetry Height: 6 ft 1 in Weight: 460 lb 11.2 oz Body Mass Index (BMI): 60.7 Physical Exam General Appearance: Positive: Alert, Oriented x3, Obese Plan Of Care Referral To: [facility] For Further OutPT Diabetic Training Diagnosis: Type 2 diabetes with hyperglycemia Class IV obesity (BMI>60) Education Prior Diabetic Education: No Education Provided: Daily Self Injection Handouts Provided: Taking charge of your diabetes Recognition and treatment of hypoglycemia Use of insulin pen and rotation of injection sites
--- NOTE | 2017-10-18 17:01 | PN ---
Subjective Date of Service: 10/18/17 Interval History: Pt had hives and facial swelling after Ancef administered. Suspect due to the antibiotic, but pt was treated with Ancef in 03/2018 without any allergy symptoms noted. The facial edema and hives resolved. Objective Active Medications: Acetaminophen (Tylenol Tab*) 650 mg PO Q4H PRN PRN Reason: FEVER/PAIN Al Hydrox/Mg Hydrox/Simethicone (Maalox Plus*) 30 ml PO Q6H PRN PRN Reason: INDIGESTION Dextrose (D50w Syringe 50 Ml*) 12.5 gm IV PUSH .FOR FS < 60 - SS PRN PRN Reason: FS < 60 Diphenhydramine HCl (Benadryl Po*) 25 mg PO Q4H PRN PRN Reason: Allergy Symptoms Last Admin: 10/18/17 08:37 Dose: 25 mg Docusate Sodium (Colace Cap*) 100 mg PO BID [facility] Last Admin: 10/18/17 08:37 Dose: Not Given Doxycycline Hyclate (Vibramycin Cap(*)) 100 mg PO BID [facility] Last Admin: 10/18/17 08:37 Dose: 100 mg Glipizide (Glucotrol Tab*) 5 mg PO 0800,1700 [facility] Last Admin: 10/18/17 08:37 Dose: 5 mg Heparin Sodium (Porcine) (Heparin Vial(*)) 5,000 units SUBCUT Q8HR [facility] Last Admin: 10/18/17 14:11 Dose: 5,000 units Sodium Chloride (Ns 0.9% 1000 Ml*) 1,000 mls @ 125 mls/hr IV PER RATE [facility] Last Admin: 10/18/17 02:39 Dose: 125 mls/hr Insulin Glargine (Lantus(*)) 20 units SUBCUT Q24H [facility] Last Admin: 10/18/17 09:55 Dose: 20 unit Insulin Human Lispro (Humalog*) 0 units SUBCUT ACHS [facility] PRN Reason: Protocol Last Admin: 10/18/17 12:51 Dose: 9 units Methylprednisolone Sodium Succinate (Solu-Medrol 40 Mg) 40 mg IV Q12H [facility] Last Admin: 10/18/17 08:36 Dose: 40 mg Nystatin (Nystatin Cream*) 1 applic TOPICAL TID [facility] Last Admin: 10/18/17 14:12 Dose: 1 applic Vital Signs - 8 hr 10/18/17 10/18/17 11:12 11:37 Temperature 98.0 F Pulse Rate 85 Respiratory 18 22 Rate Blood Pressure 152/82 (mmHg) O2 Sat by Pulse 93 Oximetry Oxygen Devices in Use Now: None Appearance: 32 yo obese M in nAD, AAOx3 Eyes: No Scleral Icterus, PERRLA Ears/Nose/Mouth/Throat: NL Teeth, Lips, Gums, Mucous Membranes Moist Neck: NL Appearance and Movements; NL JVP, Trachea Midline Respiratory: Symmetrical Chest Expansion and Respiratory Effort, Clear to Auscultation Cardiovascular: NL Sounds; No Murmurs; No JVD, RRR Abdominal: NL Sounds; No Tenderness; No Distention Lymphatic: No Cervical Adenopathy Extremities: No Clubbing, Cyanosis, - - trace pedal edema b/l Skin: - - pubic area and b/l groin intertrigo resolving. Several folliculitis like spots greatly improved, cellulitis receding. Pt has an area of induration to left of his penis -likely related to hydroadenitis suppurativa. Neurological: Alert and Oriented x 3, NL Muscle Strength and Tone Result Diagrams: 10/17/17 10:03 10/18/17 06:21 Additional Lab and Data: Lab Results 10/17/17 10/17/17 10/17/17 Range/Units 10:03 10:03 10:03 WBC 8.2 (3.5-10.8) 10^3/ul RBC 5.11 (4.0-5.4) 10^6/ul Hgb 15.4 (14.0-18.0) g/dl Hct 45 (42-52) % MCV 88 (80-94) fL MCH 30 (27-31) pg MCHC 34 (31-36) g/dl RDW 14 (10.5-15) % Plt Count 119 L (150-450) 10^3/ul MPV 11.4 H (7.4-10.4) um3 Neut % (Auto) 63.7 (38-83) % Lymph % (Auto) 22.0 L (25-47) % [place] % (Auto) 10.6 H (0-7) % Eos % (Auto) 2.8 (0-6) % Baso % (Auto) 0.9 (0-2) % Absolute Neuts (auto) 5.2 (1.5-7.7) 10^3/ul Absolute Lymphs (auto) 1.8 (1.0-4.8) 10^3/ul Absolute Monos (auto) 0.9 H (0-0.8) 10^3/ul Absolute Eos (auto) 0.2 (0-0.6) 10^3/ul Absolute Basos (auto) 0.1 (0-0.2) 10^3/ul Absolute Nucleated RBC 0 10^3/ul Nucleated RBC % 0.1 ESR 35 H (0-14) mm/Hr Sodium 129 L (139-145) mmol/L Potassium 4.3 (3.5-5.0) mmol/L Chloride 92 L (101-111) mmol/L Carbon Dioxide 24 (22-32) mmol/L Anion Gap 13 H (2-11) mmol/L BUN 14 (6-24) mg/dL Creatinine 0.79 (0.67-1.17) mg/dL Est GFR ( Amer) 147.1 (>60) Est GFR (Non-Af Amer) 114.4 (>60) BUN/Creatinine Ratio 17.7 (8-20) Glucose 498 H (70-100) mg/dL Hemoglobin A1c (4.0-5.6) % Lactic Acid 0.9 (0.5-2.0) mmol/L Calcium 9.3 (8.6-10.3) mg/dL Total Bilirubin 0.70 (0.2-1.0) mg/dL AST 18 (13-39) U/L ALT 35 (7-52) U/L Alkaline Phosphatase 59 (34-104) U/L C-Reactive Protein 36.22 H (< 5.00) mg/L Total Protein 6.9 (6.4-8.9) g/dL Albumin 3.7 (3.2-5.2) g/dL Globulin 3.2 (2-4) g/dL Albumin/Globulin Ratio 1.2 (1-3) 10/17/17 Range/Units 10:03 WBC (3.5-10.8) 10^3/ul RBC (4.0-5.4) 10^6/ul Hgb (14.0-18.0) g/dl Hct (42-52) % MCV (80-94) fL MCH (27-31) pg MCHC (31-36) g/dl RDW (10.5-15) % Plt Count (150-450) 10^3/ul MPV (7.4-10.4) um3 Neut % (Auto) (38-83) % Lymph % (Auto) (25-47) % [place] % (Auto) (0-7) % Eos % (Auto) (0-6) % Baso % (Auto) (0-2) % Absolute Neuts (auto) (1.5-7.7) 10^3/ul Absolute Lymphs (auto) (1.0-4.8) 10^3/ul Absolute Monos (auto) (0-0.8) 10^3/ul Absolute Eos (auto) (0-0.6) 10^3/ul Absolute Basos (auto) (0-0.2) 10^3/ul Absolute Nucleated RBC 10^3/ul Nucleated RBC % ESR (0-14) mm/Hr Sodium (139-145) mmol/L Potassium (3.5-5.0) mmol/L Chloride (101-111) mmol/L Carbon Dioxide (22-32) mmol/L Anion Gap (2-11) mmol/L BUN (6-24) mg/dL Creatinine (0.67-1.17) mg/dL Est GFR ( Amer) (>60) Est GFR (Non-Af Amer) (>60) BUN/Creatinine Ratio (8-20) Glucose (70-100) mg/dL Hemoglobin A1c 15.2 H (4.0-5.6) % Lactic Acid (0.5-2.0) mmol/L Calcium (8.6-10.3) mg/dL Total Bilirubin (0.2-1.0) mg/dL AST (13-39) U/L ALT (7-52) U/L Alkaline Phosphatase (34-104) U/L C-Reactive Protein (< 5.00) mg/L Total Protein (6.4-8.9) g/dL Albumin (3.2-5.2) g/dL Globulin (2-4) g/dL Albumin/Globulin Ratio (1-3) Assess/Plan/Problems-Billing Assessment: 32 yo M with morbid obesity presented with groin/pannus cellultis and new dx of DM. - Patient Problems (1) Cellulitis Comment: due to possible allergy to Ancef, started Doxy. Improving. cont Nystatin for Jenny intertrigo (2) Morbid obesity with BMI of 60.0-69.9, adult (3) Hives Comment: suspect due to ancef, resolved. will cont Benadryl prn. Stop Solu Medrol (4) DM2 (diabetes mellitus, type 2) Comment: DM consult pending cont ISS, increasing Lantus. cont Gliupizide. Can start metformin [address] (5) DVT prophylaxis Comment: HSQ Status and Disposition: Due to still uncontrolled DM will place pt on full admission
[2017-10-18] MEDS ORDERED: Insulin GLARGINE(*) 1 UNITS UNIT SUBCUT ONE (18:30)
[2017-10-18] MEDS ORDERED: Insulin GLARGINE(*) 1 UNITS UNIT ONE (18:55)
[2017-10-19] MEDS: Heparin VIAL(*) 5000 UNITS/ML VIAL (FIVE THOUSAND) SUBCUT SCH ×2 (05:53→12:51)
[2017-10-19] MEDS ORDERED: glipiZIDE TAB* 5 MG PO SCH (08:10)
[2017-10-19] MEDS ORDERED: Insulin GLARGINE(*) 1 UNITS UNIT SUBCUT SCH (09:00)
[2017-10-19] MEDS: DOXYcycline CAP(*) 100 MG PO SCH (09:07)
[2017-10-19] MEDS: Nystatin CREAM* 15 GM TUBE TOPICAL SCH ×2 (09:09→12:51)
[2017-10-19] MEDS: Docusate CAP* 100 MG PO SCH (09:09)
[2017-10-19] MEDS: Insulin LISPRO* 1 UNITS UNIT SUBCUT SCH ×2 (09:11→12:51)
[2017-10-19] MEDS: glipiZIDE TAB* 5 MG PO SCH (09:12)
[2017-10-19] MEDS ORDERED: Vancomycin Trough Check NOTE FOLLOW UP ONE (12:30)
[2017-10-19 13:47] VITALS: BP 141/86
[2017-10-19] MEDS ORDERED: metFORMIN* 500 MG TAB PO SCH (17:00)
--- NOTE | 2017-10-27 11:14 | DS ---
CC: Dr. Sosa from [facility] DISCHARGE SUMMARY: DATE OF ADMISSION: 10/17/17 DATE OF DISCHARGE: 10/19/17 PRIMARY CARE PROVIDER: Dr. Sosa from [facility]. DISCHARGE DIAGNOSES: Panniculitis and cellulitis as well as inguinal Jenny intertrigo. SECONDARY DIAGNOSES: 1. Hives that occurred likely due to Ancef and resolved by the time of discharge. 2. Diabetes, type 2, which is new diagnosis and the patient's hemoglobin A1c noted to be a 15.2 at a dmission. MEDICATIONS AT DISCHARGE: Include: 1. Doxycycline 100 mg b.i.d. for a total of 10 days. 2. Glipizide 10 mg b.i.d. 3. Insulin Lantus 30 units subcutaneously daily. 4. Metformin 500 mg b.i.d. 5. Nystatin cream apply to inguinal areas twice a day. LABORATORY DATA AND STUDIES PERFORMED DURING HOSPITAL STAY: Included: On 10/18/17, sodium of 134, potassium of 3.7, chloride 100, carbon dioxide 25, BUN 9, creatinine 0.6. The patient's hemoglobin A1c level was 15.2 at admission. CBC on 10/17/17, white blood cell count of 8.2, hemoglobin 15.4, hematocrit 45, and platelets of 119. The patient's ESR was 35. 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 Diffuse dermal thick ening of the scrotum. No accompanying subcutaneous emphysema evidenced. No loculated soft tissue or plain fluid collection evident. The testicles are located in the scrotum. No gross CT evidence for significant hydrocele; however, ultrasound would be more sensitive for detection of hydrocele. Negat mckenzie for lymphadenopathy." Microbiology tests, none were noted. CONSULTATIONS DURING THE HOSPITAL STAY: Included nurse practitioner, Grecia Justice for diabetic cons ultation. HOSPITALIZATION COURSE: Florian Strong is a 32-year-old morbid obese male with a BMI of 60. The patien t presented complaining of an infection in the groin area. The patient was noted to have Jenny int ertrigo as well as superimposed panniculitis and cellulitis in the groin area. He was admitted to [facility]. He was treated initially with intravenous Ancef, which he tolerated well 6 months ago, b ut this time, he developed hives. ANCEF was stopped and was placed on the patient's allergy list. Eric morgan was then placed on doxycycline with good results. The patient was not septic during his hospital s vel. He was noted to have very high hyperglycemia with sugar levels in the 500 range. His hemoglobi n A1c was 15.2 and he was diagnosed with new onset diabetes, type 2. He underwent diabetic nutrition education. He will also have diabetic consult from [facility] to come and see the patient for evaluation. The patient's medications were slowly titrated up and he is going to be discharged on glipizide, metformin, and Lantus. The patient was told to have to use an insulin pen. At dischar , he was prescribed supplies for his glucometer as well as insulin Lantus pens. By the time of discharge, his Jenny intertrigo was also improving greatly. He still continued to h ave areas of small folliculitis and an area of subcutaneous induration that was resembling hidradenit is suppurativa. Those were also improving by the time of discharge. The patient is recommended to jason byrdlow up with Dr. Sosa from [facility] at discharge for followup. Please note that this is a short summary of the patient's hospitalization. Please refer to further edical record for details. TIME SPENT: Approximately 45 minutes were spent on the patient's discharge. [id number]/[facility] #: [id number]
== END 2017-10-19 15:05 | disposition home or self-care (01) | DRG 603 ==
LOC: ED 08:22 → MED 15:28 → OBSVTOIN 10-18 09:00
PROVIDERS: ADMIT Internal Medicine; ATTEND Internal Medicine
DX: L03.314 Cellulitis of groin (principal); Z68.44 Body mass index [BMI] 60.0-69.9, adult; I10 Essential (primary) hypertension; G47.30 Sleep apnea, unspecified; F17.210 Nicotine dependence, cigarettes, uncomplicated; E66.01 Morbid (severe) obesity due to excess calories; E11.65 Type 2 diabetes mellitus with hyperglycemia; M79.3 Panniculitis, unspecified; B37.2 Candidiasis of skin and nail; E86.0 Dehydration; Z90.89 Acquired absence of other organs; Z83.3 Family history of diabetes mellitus; Z82.49 Family history of ischemic heart disease and other diseases of the circulatory system; Z88.1 Allergy status to other antibiotic agents; T36.1X5A Adverse effect of cephalosporins and other beta-lactam antibiotics, initial encounter; R60.9 Edema, unspecified; L50.9 Urticaria, unspecified
CPT/HCPCS: 36415; 72193; 80048; 80053; 83036; 83605; 85025; 85652; 86140; 99283; A9270-GY; G0378; J0690; J1200; J1644; J2920; J3370; Q9967

== ENCOUNTER 2018-12-23 09:00 | Emergency (ER) | payer OTHER ==
[2018-12-23] MEDS ORDERED: Tetan/Diph/Pertus SYR(Tdap)* 0.5 ML SYR(BOOSTRIX) use SYR IM ONE (09:19)
--- NOTE | 2018-12-23 11:18 | ED ---
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 Pain Intensity: 3 - Allergies/Home Medications Allergies/Adverse Reactions: Allergies Allergy/AdvReac Type Severity Reaction Status Date / Time cefazolin Allergy Facial Verified 12/23/18 09:26 Redness/Flushing PMH/Surg Hx/FS Hx/Imm Hx Endocrine/Hematology History: Reports: Hx Diabetes - POSSIBLE - NO MEDS Cardiovascular History: Reports: Hx Hypertension Respiratory History: Reports: Hx Sleep Apnea - NO MACHINES Sensory History: Reports: Hx Contacts or Glasses - READING GLASSES Denies: Hx Cataracts, Hx Hearing Aid Opthamlomology History: Reports: Hx Contacts or Glasses - READING GLASSES Denies: Hx Cataracts - Surgical History Surgery Procedure, Year, and Place: TONSILLECTOMY AND ADENOIDECTOMY A CHILD. 2009 UMBILICAL HERNIA REPAIR, [facility] Hx Anesthesia Reactions: No Infectious Disease History: No Infectious Disease History: Denies: Traveled Outside the [place] in Last 30 Days - Family History Known Family History: Positive: Diabetes - grandmother - Social History Alcohol Use: Rare Substance Use Type: Reports: Marijuana Smoking Status (MU): Current Every Day Smoker Physical Exam Vital Signs On Initial Exam: Initial Vitals Temp Pulse Resp BP Pulse Ox 98.8 F 92 18 151/97 95 12/23/18 09:02 12/23/18 09:02 12/23/18 09:02 12/23/18 09:02 12/23/18 09:02 Diagnostics - Vital Signs Vital Signs Temp Pulse Resp BP Pulse Ox 12/23/18 09:02 98.8 F 92 18 151/97 95 - Laboratory Lab Statement: Any lab studies that have been ordered have been reviewed, and results considered in the medical decision making process. Discharge - Sign-Out/Discharge Documenting (check all that apply): Patient Departure Patient Received Moderate/Deep Sedation with Procedure: No - Discharge Plan Condition: Stable Disposition: HOME Prescriptions: Levofloxacin TAB* [Levaquin TAB*] 500 mg PO DAILY #7 tab Patient Education Materials: Puncture Wound (ED) Referrals: Preet Sosa DO [Primary Care Provider] - Additional Instructions: Take medications as directed Follow-up with PCP this week - call Monday to schedule appoinment *If worse, return to ED - Billing Disposition and Condition Condition: STABLE Disposition: Home
[2018-12-23 11:25] VITALS: BP 149/93
== END 2018-12-23 11:24 | disposition home or self-care (01) ==
LOC: ED 09:00
DX: S91.331A Puncture wound without foreign body, right foot, initial encounter (principal); W26.9XXA Contact with unspecified sharp object(s), initial encounter; Y92.9 Unspecified place or not applicable; I10 Essential (primary) hypertension; Z23 Encounter for immunization; Z88.1 Allergy status to other antibiotic agents; F17.200 Nicotine dependence, unspecified, uncomplicated
CPT/HCPCS: 90471; 90715; 99282